=== PATIENT | female | born 1995 | race Caucasian/White ===

== ENCOUNTER 2018-01-13 11:52 | Emergency (ER) | payer OTHER ==
[~2018-01-13] VITALS: Ht 167.6 cm; Wt 83.2 kg
[2018-01-13 11:56] VITALS: TEMP 36.7; Ht 167.6 cm; Wt 83.2 kg
--- NOTE | 2018-01-13 12:22 | EMERGENCY ROOM VISIT NOTE ---
History Report prepared by Eliz: Fawn Gonzalez Under the Supervision of: Dr. Debi Mckeon M.D. First contact with patient: 12:07 Chief Complaint: ED VAG BLEEDING Stated Complaint: IUD EXPELLED,DEC 3 - BLEEDING SINCE History of Present Illness The patient is a 22 year old female who presents to the Emergency Room with complaints of constant bleeding that began about 23 days ago. The patient states that this morning she woke up and her menstrual cup was overflowed with blood and there was blood all over her sheets. The patient denies any abdominal pain, shortness of breath, weakness, or fevers. The patient states that she had an IUD that was expelled about 23 days ago and states that she believes it came out in one piece. She states that she had her period when the IUD was expelled and she has been bleeding ever since. The patient also states that before this morning, her bleeding was very light. The patient states after the IUD was expelled, she got a yeast infection. The patient states that when she had the IUD in she would get her period for two weeks at a time. She also states that she had the IUD in for six months before it was expelled. The patient also states that she is not currently sexually active. Source of History: patient Onset: 23 days ago Position: other (vagina ) Quality: other (bleeding ) Timing: constant Associated Symptoms: No fevers, No SOB, No abdominal pain, No weakness Review of Systems See HPI for pertinent positives & negatives. A total of 10 systems reviewed and were otherwise negative. Past Medical & Surgical Medical Problems: (1) Asthma (2) Stomach problems Family History FHx: cancer Heart disease High blood pressure Social History Smoking Status: Never Smoker Marital Status: single Housing Status: lives with roommate Occupation Status: [employer] student Current/Historical Medications Scheduled Atomoxetine (Strattera), 40 MG PO DAILY Escitalopram Oxalate (Lexapro), 20 MG PO DAILY Hyoscyamine Sulfate (Anaspaz), 1 TAB PO PRN Multivitamin (Multivitamin), 1 TAB PO DAILY Miscellaneous Medications Bupropion (Wellbutrin), 75 MG PO Allergies Coded Allergies: No Known Allergies (Unverified , 01/13/18) Physical Exam Vital Signs Date Time Temp Pulse Resp B/P (MAP) Pulse Ox O2 Delivery O2 Flow Rate FiO2 01/13/18 14:31 88 14 111/75 98 01/13/18 13:35 88 14 111/76 98 01/13/18 11:56 36.7 112 16 107/73 94 Room Air Physical Exam Vital signs reviewed. General: Well-appearing 22 year old female, in no significant distress. HEENT: No scleral icterus, PERRLA, neck supple. Atraumatic. Cardiovascular: Regular rate and rhythm, no extra sounds. Pulmonary: Clear to auscultation bilaterally, normal work of breathing. Abdomen: Soft, nontender, nondistended, positive bowel sounds. Musculoskeletal: Atraumatic, no peripheral edema. Neurologic: Patient awake alert and oriented x 3 Skin: Warm, dry, no rash Pelvic: Normal external female genitalia, moderate amount of blood in the vaginal canal. Cervix appears to be within normal limits, there is no laceration identified or active bleeding. No external lesions or discharge. No cervical motion tenderness or palpable adnexal mass. Medical Decision & Procedures Laboratory Results 01/13/18 12:34 Red Blood Count 4.60, Mean Corpuscular Volume 88.3, Mean Corpuscular Hemoglobin 30.2, Mean Corpuscular Hemoglobin Concent 34.2, Mean Platelet Volume 9.9, Neutrophils (%) (Auto) 62.5, Lymphocytes (%) (Auto) 26.8, Monocytes (%) (Auto) 8.0, Eosinophils (%) (Auto) 2.0, Basophils (%) (Auto) 0.5, Neutrophils # (Auto) 4.08, Lymphocytes # (Auto) 1.75, Monocytes # (Auto) 0.52, Eosinophils # (Auto) 0.13, Basophils # (Auto) 0.03 Test 01/13/18 12:34 White Blood Count 6.52 K/uL (4.8-10.8) Red Blood Count 4.60 M/uL (4.2-5.4) Hemoglobin 13.9 g/dL (12.0-16.0) Hematocrit 40.6 % (37-47) Mean Corpuscular Volume 88.3 fL (80-100) Mean Corpuscular Hemoglobin 30.2 pg (25-34) Mean Corpuscular Hemoglobin Concent 34.2 g/dl (32-36) Platelet Count 316 K/uL (130-400) Mean Platelet Volume 9.9 fL (7.4-10.4) Neutrophils (%) (Auto) 62.5 % Lymphocytes (%) (Auto) 26.8 % Monocytes (%) (Auto) 8.0 % Eosinophils (%) (Auto) 2.0 % Basophils (%) (Auto) 0.5 % Neutrophils # (Auto) 4.08 K/uL (1.4-6.5) Lymphocytes # (Auto) 1.75 K/uL (1.2-3.4) Monocytes # (Auto) 0.52 K/uL (0.11-0.59) Eosinophils # (Auto) 0.13 K/uL (0-0.5) Basophils # (Auto) 0.03 K/uL (0-0.2) RDW Standard Deviation 40.1 fL (36.4-46.3) RDW Coefficient of Variation 12.6 % (11.5-14.5) Immature Granulocyte % (Auto) 0.2 % Immature Granulocyte # (Auto) 0.01 K/uL (0.00-0.02) Human Chorionic Gonadotropin, Qual NEG (NEG) Laboratory results per my review. ED Course 1212: Past medical records reviewed. The patient was evaluated in room A10. A complete history and physical examination was performed. 1415: Upon reevaluation, the patient appeared to have improvement of her symptoms. I discussed findings with her. She verbalized agreement of the treatment plan. She was discharged home. Medical Decision Differential diagnosis: Etiologies such as ectopic , dysfunction uterine bleeding, bleeding dyscrasia, trauma, infection, as well as others were entertained. This patient was evaluated and appeared to be in no significant distress. IV access was obtained and laboratory work was drawn. Patient's H&H appears to be stable. Vital signs are stable. Pelvic exam was performed and reveals a mild to moderate amount of blood in the vaginal vault. There is no clotting or adnexal mass appreciated. I suspect this is now a menstrual cycle approximately 3 weeks after the IUD was dislodged. The patient states the IUD was intact, she has no pain or fever. I do not feel that imaging is warranted at this time. The patient is likely having some dysfunctional uterine bleeding due to hormone withdrawal previously. It was recommended that the patient follow-up with [facility] gynecology for further management as OCPs tend to exacerbate her depression. The patient will return to the emergency department for worsening of symptoms or any medical concerns. Medication Reconcilliation Current Medication List: was personally reviewed by me Blood Pressure Screening Patient's blood pressure: Normal blood pressure Impression Primary Impression: Vaginal bleeding, abnormal Scribe Attestation The scribe's documentation has been prepared under my direction and personally reviewed by me in its entirety. I confirm that the note above accurately reflects all work, treatment, procedures, and medical decision making performed by me. Departure Information Dispostion Home / Self-Care Referrals No Doctor, Assigned (PCP) Forms HOME CARE DOCUMENTATION FORM, IMPORTANT VISIT INFORMATION, WORK / SCHOOL INSTRUCTIONS Patient Instructions My [facility] Additional Instructions Diagnosis: Dysfunctional vaginal bleeding Drink plenty of clear fluids. Call [facility] for follow-up with gynecology this week. Return to the emergency department for heavier vaginal bleeding or any medical concerns.
[2018-01-13 12:49] LABS: BASO % 0.5 %; BASO ABS # 0.03 K/uL (0-0.2); EOS ABS # 0.13 K/uL (0-0.5); HEMATOCRIT 40.6 % (37-47); HEMOGLOBIN 13.9 g/dL (12.0-16.0); IG# 0.01 K/uL (0.00-0.02); LYMPH % 26.8 %; LYMPH ABS # 1.75 K/uL (1.2-3.4); MEAN CELL VOLUME 88.3 fL (80-100); MEAN CORPUSCULAR HEMOGLOBIN 30.2 pg (25-34); MEAN CORPUSCULAR HGB CONC 34.2 g/dl (32-36); MEAN PLATELET VOLUME 9.9 fL (7.4-10.4); MONO ABS # 0.52 K/uL (0.11-0.59); NEUT % 62.5 %; NEUT ABS # 4.08 K/uL (1.4-6.5); PLATELET COUNT 316 K/uL (130-400); RED CELL DISTRIBUTION WIDTH CV 12.6 % (11.5-14.5); RED CELL DISTRIBUTION WIDTH SD 40.1 fL (36.4-46.3); WHITE BLOOD COUNT 6.52 K/uL (4.8-10.8)
[2018-01-13] MEDS ORDERED: MULT-506 PO (13:44)
[2018-01-13] MEDS ORDERED: ESCI1TAB10 PO (13:44)
[2018-01-13] MEDS ORDERED: BUPR75TA20 PO (13:44)
[2018-01-13] MEDS ORDERED: ATOM25CA PO (13:44)
[2018-01-13] MEDS ORDERED: HYOS0.12 PO (13:44)
[2018-01-13 14:31] VITALS: BP 111/75; PULSE 88; O2SAT 98
== END 2018-01-13 14:33 | disposition home or self-care (01) ==
LOC: C.EDB 11:54 → C.EDA 14:33
DX: N93.9 Abnormal uterine and vaginal bleeding, unspecified (principal); F32.9 Major depressive disorder, single episode, unspecified